=== PATIENT | male | born 2000 | race Caucasian/White ===

== ENCOUNTER 2020-07-26 14:30 | Emergency (ER) | payer BC ==
[~2020-07-26] VITALS: Ht 185.4 cm; Wt 79.4 kg
--- NOTE | 2020-07-26 14:54 | NUR ---
PT IS IN ROOM #2A. DR STOUT EVALUATED THE PT.
[2020-07-26] MEDS: MORPHINE SULFATE 4 MG/1 ML DISP.SYRIN IV ONE ×3 (15:00→16:04)
[2020-07-26] MEDS: ONDANSETRON 4 MG/2 ML VIAL IV ONE (15:00)
[2020-07-26] MEDS ORDERED: MORPHINE SULFATE 4 MG/1 ML DISP.SYRIN ONE ×3 (15:08→15:40)
[2020-07-26] MEDS ORDERED: ONDANSETRON 4 MG/2 ML VIAL ONE (15:08)
--- NOTE | 2020-07-26 15:25 | NUR ---
Moderate Sedation for closed reduction of right shoulder. Pt signed consent for procedure after speaking with and a time out was performed per hospital protocol prior to procedure. Please see written moderate sedation record for further information.
[2020-07-26] MEDS ORDERED: PROPOFOL 200 MG/20 ML BOTTLE ONE (15:32)
[2020-07-26] MEDS ORDERED: HYDROMORPHONE 1 MG/1 ML DISP.SYRIN ONE (15:49)
--- NOTE | 2020-07-26 15:50 | NUR ---
Pt is awake and alert with NAD noted. Post reduction x-ray done, pt remains on cont air sampling and monitoring, BP and pulse ox.
[2020-07-26] MEDS: PROPOFOL 200 MG/20 ML BOTTLE IV ONE (15:54)
[2020-07-26] MEDS: HYDROMORPHONE 1 MG/1 ML DISP.SYRIN IV ONE (16:01)
[2020-07-26] MEDS ORDERED: IBUP-1955 PO (16:20)
[2020-07-26] MEDS ORDERED: HYDR-4209 PO (16:20)
--- NOTE | 2020-07-26 17:13 | NUR ---
PT WAS D/C'd TO HOME AFTER DR STOUT ASSESSMENT. PT IS FULLY AWAKE, GAIT IS STABLE , PT DENIES PAIN, NO SOB, NO N/V, NO DIZZINESS, A/O x 4. D/C INSTRUCTIONS GIVEN TO THE PT BY DR STOUT. PT LEFT HOSPITAL WITH HIS BROTHER BY TAXI.
[2020-07-26 17:16] VITALS: BP 138/79
== END 2020-07-26 17:17 | disposition home or self-care (01) ==
LOC: ER 14:30
DX: S43.014A Anterior dislocation of right humerus, initial encounter (principal); W19.XXXA Unspecified fall, initial encounter; Y92.89 Other specified places as the place of occurrence of the external cause; Y99.8 Other external cause status; Z82.49 Family history of ischemic heart disease and other diseases of the circulatory system
CPT/HCPCS: 23650; 73030 ×2; 96374; 96375; 96376; 99152; 99285; J1170; J2270 ×3; J2405; A4663; G0500; J3490; J7030